=== PATIENT | male | born 1970 | race Native Hawaiian/Other Pacific Islander ===

== ENCOUNTER 2020-11-14 09:22 | Emergency (ER) | payer OTHER ==
[~2020-11-14] VITALS: Ht 175.3 cm; Wt 83.9 kg
[2020-11-14 10:13] LABS: PLATELET COUNT 331 K/uL (142-355)
[2020-11-14 10:18] LABS: POTASSIUM 4.1 mmol/L (3.6-5.2)
[2020-11-14 11:10] VITALS: BP 132/84; TEMP 98.2
== END 2020-11-14 11:10 | disposition home or self-care (01) ==
LOC: ED 09:22
PROVIDERS: Emergency Medicine Emergency Medical Services
DX: S39.012A Strain of muscle, fascia and tendon of lower back, initial encounter (principal); M51.37 Other intervertebral disc degeneration, lumbosacral region; X58.XXXA Exposure to other specified factors, initial encounter; Y92.89 Other specified places as the place of occurrence of the external cause
CPT/HCPCS: 36415; 80053; 81000; 85027; 96360; 96375; 99284; J1885

== ENCOUNTER 2021-03-21 12:09 | Outpatient (CLI) | payer OTHER ==
[2021-03-21 13:04] LABS: PLATELET COUNT 347 K/uL (142-355)
[2021-03-21 13:33] LABS: POTASSIUM 3.9 mmol/L (3.6-5.2)
== END 2021-03-21 23:21 | disposition home or self-care (01) ==
LOC: LABW 12:09
PROVIDERS: ATTEND Nurse Practitioner Family
DX: U07.1 COVID-19 (principal)
CPT/HCPCS: 36415; 80053; 82550; 82728; 83880; 84484; 85027; 85379; 86140

== ENCOUNTER 2021-03-27 11:56 | Outpatient (CLI) | payer OTHER | END 2021-03-27 19:01 | disposition home or self-care (01) | LOC: LABW 11:56 | PROVIDERS: ATTEND Nurse Practitioner Primary Care | DX: U07.1 COVID-19 (principal) ==

== ENCOUNTER 2021-04-04 10:58 | Outpatient (CLI) | payer OTHER | END 2021-04-04 19:01 | disposition home or self-care (01) | LOC: RAD 10:58 | PROVIDERS: ATTEND Nurse Practitioner Primary Care | DX: R07.81 Pleurodynia (principal) ==

== ENCOUNTER 2021-08-18 10:36 | Outpatient (CLI) | payer OTHER | END 2021-08-18 21:17 | disposition home or self-care (01) | LOC: RAD 10:36 | PROVIDERS: ATTEND Nurse Practitioner Primary Care | DX: M25.561 Pain in right knee (principal) ==

== ENCOUNTER 2021-11-24 11:34 | Observation (INO) | payer OTHER ==
[~2021-11-24] VITALS: Ht 172.7 cm; Wt 89.6 kg
[2021-11-24 11:52] VITALS: BP 162/93; TEMP 97.5; Ht 172.7 cm; Wt 89.6 kg
[2021-11-24 12:20] LABS: PLATELET COUNT 274 K/uL (142-355)
[2021-11-24 12:34] LABS: POTASSIUM 3.8 mmol/L (3.6-5.2)
[2021-11-24] MEDS ORDERED: IBU-200200 MG PO (13:44)
[2021-11-24] MEDS ORDERED: [UNRECOGNIZED DRUG - OTHER] PO (13:45)
[2021-11-24] MEDS ORDERED: PREDNISONE10 M2 (13:46)
[2021-11-24] MEDS ORDERED: DICL75TA4 PO (13:47)
[2021-11-24] MEDS ORDERED: ALBU90AE13 INH (13:48)
[2021-11-24] MEDS ORDERED: LORA10TA3 PO (13:49)
[2021-11-24] MEDS ORDERED: FAMOTIDINE40 MG PO (13:50)
[2021-11-24 16:00] VITALS: BP 142/88; TEMP 98.1
[2021-11-24 20:00] VITALS: BP 150/90; TEMP 97.5
[2021-11-24 23:00] VITALS: BP 155/79
[2021-11-25] VITALS: TEMP 98.5
[2021-11-25 04:00] VITALS: BP 148/70; TEMP 97.5
[2021-11-25 05:31] LABS: PLATELET COUNT 314 K/uL (142-355)
[2021-11-25 05:35] LABS: POTASSIUM 3.6 mmol/L (3.6-5.2)
[2021-11-25 08:00] VITALS: BP 129/90; TEMP 97.9
[2021-11-25 11:40] VITALS: BP 134/79; TEMP 97.5
[2021-11-25] MEDS ORDERED: BENZONATATE100 MG PO (13:12)
[2021-11-25] MEDS ORDERED: XOPENEX 1.25MG INH 3 INH (13:12)
[2021-11-25] MEDS ORDERED: METO-837 PO (13:13)
[2021-11-25] MEDS ORDERED: AZIT250T3 PO (13:14)
[2021-11-25] MEDS ORDERED: PRED10TA27 PO (13:16)
== END 2021-11-25 14:07 | disposition home or self-care (01) ==
LOC: MED/SURG 11:34
PROVIDERS: ADMIT Internal Medicine; ATTEND Internal Medicine
DX: J45.901 Unspecified asthma with (acute) exacerbation (principal); I10 Essential (primary) hypertension; I25.10 Atherosclerotic heart disease of native coronary artery without angina pectoris; K21.9 Gastro-esophageal reflux disease without esophagitis; M15.8 Other polyosteoarthritis; I25.2 Old myocardial infarction
CPT/HCPCS: 36415; 80048; 80053; 85027; 87040; 87070; 87205; 87502; 87635; 93005; 94664; 94760; 96361; 96366; 96367; 96372; 96374; 96375; 96376; 99220; G0378; G0379; J0360; J0456; J0696; J1650; J2920; J2930; U0003

== ENCOUNTER 2022-02-27 13:11 | Outpatient (CLI) | payer OTHER ==
[~2022-02-27 13:11] MED LIST: ALBU90AE13 INH; AZIT250T3 PO; BENZONATATE100 MG PO; DICL75TA4 PO; FAMOTIDINE40 MG PO; IBU-200200 MG PO; LORA10TA3 PO; METO-837 PO; PRED10TA27 PO; PREDNISONE10 M2; XOPENEX 1.25MG INH 3 INH; [UNRECOGNIZED DRUG - OTHER] PO
== END 2022-02-27 20:37 | disposition home or self-care (01) ==
LOC: RAD 13:11
PROVIDERS: ATTEND Nurse Practitioner Family
DX: J20.9 Acute bronchitis, unspecified (principal)

== ENCOUNTER 2022-07-12 10:47 | Outpatient (CLI) | payer OTHER | END 2022-07-12 17:00 | LOC: RAD 10:47 | PROVIDERS: ATTEND Nurse Practitioner Family | DX: M54.12 Radiculopathy, cervical region (principal); M54.6 Pain in thoracic spine ==

== ENCOUNTER 2022-09-12 09:09 | Emergency (ER) | payer OTHER ==
[~2022-09-12] VITALS: Ht 175.3 cm; Wt 94.8 kg
[2022-09-12 09:37] LABS: PLATELET COUNT 317 K/uL (142-355)
[2022-09-12 09:44] LABS: POTASSIUM 3.7 mmol/L (3.6-5.2); SODIUM 135 mmol/L (136-145)
[2022-09-12 09:50] LABS: PARTIAL THROMBOPLASTIN TIME 26.3 SECONDS (23.9-36.7)
[2022-09-12 12:09] VITALS: BP 135/88
== END 2022-09-12 12:09 | disposition home or self-care (01) ==
LOC: ED 09:09
PROVIDERS: Family Medicine
DX: M79.18 Myalgia, other site (principal); R07.9 Chest pain, unspecified
CPT/HCPCS: 80053; 82550; 84484; 85027; 85610; 85730; 86140; 93005; 96361; 96374; 96375; 99284; J1100; J1885